=== PATIENT | female | born 1990 | race Caucasian/White ===

== ENCOUNTER → 2021-03-05 | Outpatient (CLI) | payer OTHER | LOC: M.ULTRA 11:00 | PROVIDERS: ATTEND Nurse Practitioner Family | DX: K22.5 Diverticulum of esophagus, acquired (principal); R06.00 Dyspnea, unspecified ==

== ENCOUNTER → 2021-04-06 | Outpatient (CLI) | payer OTHER | LOC: M.RAD 03-19 11:00 | PROVIDERS: ATTEND Nurse Practitioner Family | DX: R13.12 Dysphagia, oropharyngeal phase (principal) ==